=== PATIENT | female | born 1960 | race Caucasian/White ===

== ENCOUNTER 2017-03-02 08:54 | Outpatient (RCR) | payer BC ==
[~2017-03-02 08:54] MED LIST: ALIGN4 MG PO; CIPRO500 MG PO; CO Q-10100 MG PO; COLACE100 MG PO; DIAZEPAM5 MG PO; DICYCLOMINE HCL20 MG PO; DRAMAMINE50 MG PO; HYDROCODONE/APAP PO; MAGNESIUM OXID400 MG PO; NORCO 7.5-3251 EACH PO; OMEGA 3 1,0001 EACH PO; PANTOPRAZOLE SO40 MG PO; PROMETHAZINE HC25 M1 PO; TIZANIDINE HCL4 MG PO; TYLENOL EXTRA500 MG PO
== END 2017-03-18 ==
LOC: OT 08:54
PROVIDERS: ATTEND Plastic Surgery
DX: M19.042 Primary osteoarthritis, left hand (principal)

== ENCOUNTER 2017-11-04 19:38 | Observation (INO) | payer BC ==
[~2017-11-04] VITALS: Ht 154.9 cm; Wt 66.7 kg
[2017-11-04] MEDS ORDERED: NITROGLYCERIN 2% OINT 1 GM PKT TOP ONE (20:15)
[2017-11-04] MEDS ORDERED: ASPIRIN 81 MG CHEW TAB PO ONE (20:15)
[2017-11-04] MEDS ORDERED: ONDANSETRON HCL INJ 2 MG/ML VIAL IV NR (20:15)
[2017-11-04 20:36] LABS: BASOPHILS # (AUTO) 0.1 (0.0-0.1); BASOPHILS % 0.9 % (0.0-1.0); EOSINOPHILS # (AUTO) 0.1 (0.0-0.4); EOSINOPHILS % 2.1 % (0.0-6.0); HEMATOCRIT 37.3 % (34.2-44.1); HEMOGLOBIN 12.6 g/dL (12.0-16.0); LYMPHOCYTES # (AUTO) 2.3 (1.0-3.2); MEAN CORPUSCULAR HEMOGLOBIN 29.9 pg (28-32); MEAN CORPUSCULAR HGB CONC 33.8 g/dL (31-35); MEAN CORPUSCULAR VOLUME 88.6 fL (81-99); MONOCYTES # (AUTO) 0.5 (0.2-0.8); MONOCYTES % 7.4 % (4.4-11.3); NEUTROPHILS # (AUTO) 3.7 (2.1-6.9); NEUTROPHILS % 55.4 % (38.7-80.0); PLATELET COUNT 302 x10e3/uL (140-360); RED BLOOD COUNT 4.21 x10e6/uL (3.6-5.1)
[2017-11-04 20:37] LABS: CLARITY,URINE CLEAR (CLEAR); COLOR,URINE YELLOW (YELLOW)
[2017-11-04 20:38] LABS: BILIRUBIN,URINE NEGATIVE (NEGATIVE); KETONES,URINE NEGATIVE (NEGATIVE); LEUKOCYTE ESTERASE ,URINE NEGATIVE (NEGATIVE); NITRITE,URINE NEGATIVE (NEGATIVE); PROTEIN,URINE DIPSTICK NEGATIVE (NEGATIVE); URINE UROBILINOGEN 0.2 mg/dL (0.2 - 1)
[2017-11-04 20:47] LABS: ALANINE AMINOTRANSFERASE 24 IU/L (0-55); ALBUMIN 4.1 g/dL (3.5-5.0); ALBUMIN/GLOBULIN RATIO 1.2 (0.8-2.0); ALKALINE PHOSPHATASE 88 IU/L (40-150); ANION GAP 15.7 mmol/L (8-16); BLOOD UREA NITROGEN 17 mg/dL (7-26); BUN/CREATININE RATIO 20 (6-25); CALCIUM 9.4 mg/dL (8.4-10.2); CARBON DIOXIDE 23 mmol/L (22-29); CHLORIDE 109 mmol/L (98-107); CREATINE KINASE 197 IU/L (29-168); CREATININE, SERUM 0.86 mg/dL (0.57-1.11); EST GLOMERULAR FILTRATION RATE > 60 ML/MIN (60-); GLUCOSE 102 mg/dL (74-118); POTASSIUM 3.7 mmol/L (3.5-5.1); SODIUM 144 mmol/L (136-145)
[2017-11-04 20:49] LABS: EPITHELIAL CELLS,URINE RARE /LPF
[2017-11-04] MEDS ORDERED: ACETAMINOPHEN 325 MG TAB PO NR (21:30)
[2017-11-04] MEDS ORDERED: ONDANSETRON HCL INJ 2 MG/ML VIAL IV PRN (21:45)
[2017-11-04] MEDS ORDERED: MORPHINE SULFATE 2 MG/ML SYR IV PRN (21:45)
--- NOTE | 2017-11-04 21:54 | Diagnostic Imaging Report ---
CHEST SINGLE (PORTABLE), 11/04/2017 8:08 PM Technique: CHEST SINGLE (PORTABLE) Comparison: 07/03/2016 Clinical history: Chest pain Findings: Unremarkable appearance of the heart, mediastinum, lungs and pleural spaces. Impression: 1. Lines/Tubes: None 2. No acute abnormality. Signed by: Dr Anna Andino MD on 11/04/2017 9:50 PM
[2017-11-04 23:20] VITALS: BP 109/59
[2017-11-04] MEDS: FAMOTIDINE 20 MG/2 ML VIAL IV SCH (23:29)
[2017-11-04] MEDS: NITROGLYCERIN 2% OINT 1 GM PKT TOP SCH (23:30)
[2017-11-05 00:53] VITALS: BP 122/59
[2017-11-05 05:00] VITALS: BP 116/60
[2017-11-05 05:36] LABS: CHOLESTEROL 221 MD/DL (0-199); CREATINE KINASE 152 IU/L (29-168); HDL CHOLESTEROL 74 MG/DL (40-60); LDL CHOLESTEROL 138 MG/DL (60-130); TRIGLYCERIDES 46 MG/DL (0-149)
[2017-11-05] MEDS: NITROGLYCERIN 2% OINT 1 GM PKT TOP SCH ×2 (06:00→12:00)
[2017-11-05 07:50] VITALS: BP 131/70
[2017-11-05 08:00] VITALS: BP 131/70
[2017-11-05] MEDS ORDERED: ASPIRIN 81 MG ENTERIC COATED PO SCH (09:00)
[2017-11-05] MEDS: FAMOTIDINE 20 MG/2 ML VIAL IV SCH (10:35)
[2017-11-05 11:24] VITALS: BP 124/58
[2017-11-05] MEDS ORDERED: MORPHINE SULFATE INJ 4 MG/ML INJ IV PRN (12:45)
[2017-11-05 13:58] LABS: CREATINE KINASE 138 IU/L (29-168)
--- NOTE | 2017-11-05 14:11 | Consultation ---
DATE OF CONSULTATION: November 05, 2017 CARDIOLOGY CONSULTATION REASON FOR CONSULTATION: Chest pain. HPI: This is a 57-year-old female with history of small-bowel resection, history of diverticulosis, anxiety, GERD, chronic neck pain. Patient presents to Patients ER with complaints of chest pain, pressure and tightness for about a week. However, it worsened yesterday so she came in for evaluation, and cardiology was consulted. Patient was seen in room in no acute distress with at bedside. She reports for the past week or so she has been having off and on chest tightness and pressure, retrosternal, nonradiating, nonpleuritic, with some heart fluttering sensation. However, yesterday, apparently the symptoms got worse and she became dizzy, so she came to the ER for further evaluation. Currently, the patient is chest pain free. She is comfortable and in no acute distress. PAST MEDICAL HISTORY: Small-bowel obstruction, diverticulosis, status post large-bowel resection in 2015, anxiety, reflux, chronic neck pain. PAST SURGICAL HISTORY: Large-bowel resection in 2015. Also, neck surgery. FAMILY HISTORY: Mother is alive, unknown age, history of hypertension. Father is alive, apparently with history of right carotid endarterectomy. SOCIAL HISTORY: She is . She apparently cleans houses for a living. She denies any alcohol or tobacco use. ALLERGIES: PENICILLIN, ERYTHROMYCIN, PSEUDOEPHEDRINE. HOME MEDICATIONS: Include: 1. Dicyclomine 20 mg daily. 2. Colace 100 mg daily. 3. Magnesium oxide 400 mg daily. 4. [place] 3. 5. Protonix. 6. Tizanidine 4 mg p.o. p.r.n. REVIEW OF SYSTEMS GENERAL: Denies any weight changes, any fatigue, weakness, seizures or night sweats. SKIN: Denies any rashes or sores. HEENT: Denies any nausea, vomiting or vision changes, any blurred vision or double vision. Does wear corrective lenses. Denies any vertigo or earaches. Positive for dizziness. Denies any sneezing, itching, any epistaxis, bleeding gums, hoarseness, sore throat. CARDIAC: Positive for chest pain as above. Positive dyspnea on exertion. Positive for intermittent palpitations. Denies any orthopnea, any PND, any lower extremity edema. RESPIRATORY: Positive for shortness of breath. Denies any wheezing, coughing, hemoptysis. GI: Good appetite. No nausea, vomiting, diarrhea, constipation, any hematemesis or melena. URINARY: Denies any frequency, urgency or any hematuria. VASCULAR: Denies any lower extremity edema, any claudication, any varicose veins. MUSCULOSKELETAL: Denies any muscle weakness. However, does have cervical pain, neck pain and generalized joint pains. NEUROLOGIC: Denies any numbness, tingling, tremors, any paralysis, blackouts, seizures. HEMATOLOGY: Denies any bruising. ENDOCRINE: Denies any heat or cold intolerance, any polyuria, polydipsia or polyphagia. PHYSICAL EXAMINATION VITALS: Height 61 inches, weight 147. BMI 27. Current vitals: Temperature 96.8, pulse 59, respiratory rate 18, blood pressure 124/58. Pulse ox 95% on room air. GENERAL: Appears stated age. Reliable informant, in no acute distress. SKIN: No rashes or bruises noted. HEENT: Normocephalic. Pupils are equal and reactive. The extraocular movements are intact. NECK: Trachea midline. Oral mucosa is pink. No thyromegaly noted. No JVD. No carotid bruits. HEART: Regular rate and rhythm. No murmurs or clicks noted. PMI at 4th and 5th intercostal space. LUNGS: Bilateral breath sounds clear to auscultation. No wheezing noted. Good airway entry and exit. ABDOMEN: Soft, nontender and nondistended. No organomegaly noted. MUSCULOSKELETAL: Good muscle strength throughout. No lower extremity edema. VASCULAR: There are +2 bilateral radial pulses, +2 DP and PT pulses bilaterally. No lower extremity edema. NEUROLOGIC: Cranial nerves II through XII seem intact. LABS: White count 6.6. Hemoglobin 12.6. Hematocrit 37. Platelets 302. Sodium 144, potassium 3.7, chloride 109, BUN 17, creatinine 0.8. Troponins are less than 0.001, next less than 0.005. D-dimer is 0.29. IMAGING: Chest x-ray: No acute abnormalities. EKG: Normal sinus rhythm. ASSESSMENT 1. Chest pain. 2. Palpitations. 3. Hyperlipidemia. PLAN 1. Patient presents with chest pain with mixed symptoms. Enzymes are negative times 2 thus far. Patient is very concerned and wishes to proceed with cardiac evaluation. 2. We will go ahead and do a stress test to evaluate the symptoms. 3. Will do echo to evaluate heart function and structure. 4. Regarding the patient's apparent fluttering, continue tele monitoring. Thus far, tele was reviewed and no arrhythmias noted. Will also go ahead and get a TSH. 5. Will start statin therapy. 6. Further recommendations as clinical course progresses. Thank you very much for this consult. Dictated by: Reggie Dockery NP Job#: [id number]
--- NOTE | 2017-11-05 14:56 | Cardiology Report ---
DATE OF STUDY: November 05, 2017 EXERCISE TREADMILL STRESS TEST REASON FOR STRESS TEST: Chest discomfort. TECHNICAL DETAILS: After risks, benefits, pros and cons to today's exercise treadmill stress test were explained to the patient, the patient agreed to proceed. She was brought down to the stress lab where 12-lead EKG monitoring and blood pressure monitoring were obtained. She exercised on a Sesar protocol going from a resting heart rate of 73 beats per minute to a maximum of 143 beats per minute and was able to exercise for 7 minutes 30 seconds in duration, terminating in stage 3 of the protocol. Target heart rate was 139 beats per minute, and we exceeded that goal. Blood pressure increased from a baseline of 111/87 up to a maximum of 187/66, which is an appropriate blood pressure response. Underlying EKG reveals normal sinus rhythm, normal axis and no ST-T-wave changes. With exercise protocol, there were no ischemic EKG changes or symptoms. Protocol was terminated due to completion. CONCLUSIONS 1. Normal exercise treadmill stress test. 2. Findings of the stress test were explained to this patient including limitations. Job#: [id number]
[2017-11-05 14:58] VITALS: BP 135/91
[2017-11-05] MEDS ORDERED: ATORVASTATIN 10 MG TAB PO SCH (21:00)
== END 2017-11-05 16:08 | disposition home or self-care (01) ==
LOC: ER 19:38 → ERHOLD 21:55 → IMCU 22:52
DX: R07.2 Precordial pain (principal); F41.9 Anxiety disorder, unspecified; K21.9 Gastro-esophageal reflux disease without esophagitis; R00.2 Palpitations; E78.5 Hyperlipidemia, unspecified; Z82.49 Family history of ischemic heart disease and other diseases of the circulatory system
CPT/HCPCS: 36415 ×2; 71045; 80053; 80061; 81001; 82550 ×2; 82553 ×2; 83880; 84443; 84484 ×2; 85025; 85379; 93005; 93017; 93306; 96376; 99284; G0378 ×2; J2270; J2405 ×2

== ENCOUNTER → 2017-11-19 | Outpatient (CLI) | payer BC ==
--- NOTE | 2017-11-19 12:11 | Diagnostic Imaging Report ---
Exam: Right shoulder 2 views left shoulder 2 views History: Shoulder pain Comparison: None. Findings: Right: No acute, displaced fracture or dislocation. The humeral head projects appropriately adjacent to the glenoid. Acromioclavicular and glenohumeral joint spaces are well-maintained. Soft tissues are unremarkable. Partially visualized right hemithorax is well aerated. Left: No acute, displaced fracture or dislocation. The humeral head projects appropriately adjacent to the glenoid. Acromioclavicular and glenohumeral joint spaces are well-maintained. Soft tissues are unremarkable. Partially visualized left hemithorax is well aerated. Impression: No acute osseous abnormalities. Signed by: Dr. Reggie Shepard M.D. on 11/19/2017 12:07 PM
--- NOTE | 2017-11-19 12:14 | Diagnostic Imaging Report ---
Exam: Cervical spine complete History: Shoulder and neck pain Comparison: None. Findings: The cervical spine is visualized from skull base to the bottom of T1 on the lateral radiograph. No acute, displaced fracture or subluxation. Soft tissue, ligamentous, and spinal cord abnormalities cannot be excluded on the basis of plain radiography. There is disc space narrowing, endplate sclerosis and marginal disc osteophyte complexes at C5-6 and C6-7 with resultant reversal of the expected cervical lordosis. Bilateral uncovertebral arthrosis at these same levels is also noted. The neural foramina are patent as seen on the oblique radiographs. Atlantoaxial interval is within normal limits. Prevertebral soft tissues are of normal thickness. Impression: No acute osseous abnormalities. Degenerative disc changes at C5-6 and C6-7 with reversal of expected cervical lordosis. Signed by: Dr. Reggie Shepard M.D. on 11/19/2017 12:11 PM
== END ==
LOC: RAD 10:49
PROVIDERS: ATTEND Family Medicine
DX: M54.2 Cervicalgia (principal); M25.512 Pain in left shoulder; M25.511 Pain in right shoulder
CPT/HCPCS: 72050

== ENCOUNTER 2018-04-14 13:16 | Outpatient (RCR) | payer BC | END 2018-04-15 | LOC: PT 13:16 | PROVIDERS: ATTEND Specialist | DX: M75.91 Shoulder lesion, unspecified, right shoulder (principal); M25.511 Pain in right shoulder ==

== ENCOUNTER 2018-05-13 08:00 | Outpatient (RCR) | payer BC | END 2018-05-16 | LOC: PT 08:00 | PROVIDERS: ATTEND Specialist | DX: M75.81 Other shoulder lesions, right shoulder (principal); M25.511 Pain in right shoulder; M62.81 Muscle weakness (generalized); M54.2 Cervicalgia ==

== ENCOUNTER 2018-05-27 08:00 | Outpatient (RCR) | payer BC | END 2018-06-15 | LOC: PT 08:00 | PROVIDERS: ATTEND Specialist | DX: M25.511 Pain in right shoulder (principal); M75.81 Other shoulder lesions, right shoulder; M62.81 Muscle weakness (generalized); M54.2 Cervicalgia ==

== ENCOUNTER → 2018-09-30 | Day surgery (SDC) | payer BC ==
[~2018-09-30] MED LIST changes: +CALCIUM MAGNES1 EAC1 PO; +FENTANYL CITRATE/PF 100MCG/2 ML INJ ONE; +GLUCAGON FOR INJ 1 MG VIAL ONE; +HYOSCYAMINE 0.125 MG TAB ONE; +INSULIN N SQ; +MIDAZOLAM HCL 5 MG/ML VIAL ONE; +MULTIVITAMINS1 EAC7 PO; +PROBIOTIC PO; +PROPOFOL IV EMULSION 10 MG/ML 50 ML VIAL ONE; +SIMETHICONE 40 MG/0.6 ML BTL ONE; +[UNRECOGNIZED DRUG - OTHER] PO; +flonase
[2018-09-30 08:55] VITALS: BP 109/63
--- NOTE | 2018-09-30 14:33 | Operative Report ---
DATE OF PROCEDURE: 09/30/2018 SURGEON: Josh Foster MD PROCEDURE: Colonoscopy with polypectomy. INDICATIONS FOR COLONOSCOPY: Surveillance colonoscopy, personal history of colon polyps. MEDICATIONS: The patient was done under MAC, please see anesthesiologist's note. PROCEDURE IN DETAIL: With the patient in left lateral decubitus position, flexible fiberoptic Olympus colonoscope was inserted into the rectum with ease and advanced all the way to the cecum. A minute polyp was removed per the cold biopsy forceps from the cecum. The scope was then withdrawn slowly and scattered diverticular disease was noted in the colon. A minute polyp was hot biopsied from the sigmoid colon. Anastomotic site was noted at 18 cm from the anal verge. It was intact. One polyp was hot biopsied from the rectum. The scope was then retroflexed into the distal rectum and small internal hemorrhoids were noted, none of which was actively bleeding. The scope was then straightened out, it was subsequently withdrawn. The patient tolerated the procedure well. IMPRESSION: 1. Cecal polyp removed per cold biopsy forceps. 2. Diverticulosis. 3. Sigmoid colon polyp, hot biopsied. 4. Anastomosis at 18 cm from the anal verge, intact. 5. Rectal polyp, hot biopsied. 6. Internal hemorrhoids, none actively bleeding. PLAN: Follow up histology. Initiate high-fiber, low-fat diet. Initiate high-fiber supplement. The patient might benefit from a followup colonoscopy in 5 years. Josh Foster MD [facility] [place]/JOE /[id number] cc: Jose Luis Garcia MD
== END | disposition home or self-care (01) ==
LOC: OR 05:54
PROVIDERS: ATTEND Internal Medicine Gastroenterology
DX: Z09 Encounter for follow-up examination after completed treatment for conditions other than malignant neoplasm (principal); K63.5 Polyp of colon; K62.1 Rectal polyp; K57.30 Diverticulosis of large intestine without perforation or abscess without bleeding; Z98.0 Intestinal bypass and anastomosis status; K64.8 Other hemorrhoids; K59.00 Constipation, unspecified; Z88.1 Allergy status to other antibiotic agents; Z88.0 Allergy status to penicillin; Z88.8 Allergy status to other drugs, medicaments and biological substances; Z01.810 Encounter for preprocedural cardiovascular examination; Z79.4 Long term (current) use of insulin; Z68.27 Body mass index [BMI] 27.0-27.9, adult
CPT/HCPCS: 45380; 45384; 93005; J1610; J2250; J2704; J3010; 45378

== ENCOUNTER 2019-08-11 11:09 | Outpatient (RCR) | payer BC ==
[~2019-08-11 11:09] MED LIST changes: -FENTANYL CITRATE/PF 100MCG/2 ML INJ ONE; -GLUCAGON FOR INJ 1 MG VIAL ONE; -HYOSCYAMINE 0.125 MG TAB ONE; -MIDAZOLAM HCL 5 MG/ML VIAL ONE; -PROPOFOL IV EMULSION 10 MG/ML 50 ML VIAL ONE; -SIMETHICONE 40 MG/0.6 ML BTL ONE
== END 2019-08-16 ==
LOC: PT 11:09
PROVIDERS: ATTEND Specialist
DX: S13.4XXA Sprain of ligaments of cervical spine, initial encounter (principal); M54.2 Cervicalgia; M62.81 Muscle weakness (generalized)

== ENCOUNTER → 2019-09-16 | Outpatient (RCR) | payer BC | LOC: PT 09-02 08:23 | PROVIDERS: ATTEND Specialist | DX: M54.2 Cervicalgia (principal); M62.81 Muscle weakness (generalized) | CPT/HCPCS: 97139 ==

== ENCOUNTER 2019-10-12 07:58 | Outpatient (RCR) | payer BC | END 2019-10-17 | LOC: PT 07:58 | PROVIDERS: ATTEND Specialist | DX: S16.1XXA Strain of muscle, fascia and tendon at neck level, initial encounter (principal); M62.81 Muscle weakness (generalized) | CPT/HCPCS: 97139 ==

== ENCOUNTER 2020-04-26 06:30 | Observation (INO) | payer BC ==
[2020-04-23 15:29] LABS: BASOPHILS # (AUTO) 0.1 (0.0-0.1); BASOPHILS % 0.8 % (0.0-1.0); EOSINOPHILS # (AUTO) 0.1 (0.0-0.4); EOSINOPHILS % 1.1 % (0.0-6.0); HEMATOCRIT 35.5 % (34.2-44.1); HEMOGLOBIN 11.8 g/dL (12.0-16.0); LYMPHOCYTES # (AUTO) 2.1 (1.0-3.2); LYMPHOCYTES % 34.4 % (18.0-39.1); MEAN CORPUSCULAR HEMOGLOBIN 29.3 pg (28-32); MEAN CORPUSCULAR HGB CONC 33.2 g/dL (31-35); MEAN CORPUSCULAR VOLUME 88.1 fL (81-99); MONOCYTES # (AUTO) 0.3 (0.2-0.8); MONOCYTES % 4.9 % (4.4-11.3); NEUTROPHILS # (AUTO) 3.6 (2.1-6.9); NEUTROPHILS % 58.6 % (38.7-80.0); PLATELET COUNT 370 x10e3/uL (140-360); RED BLOOD COUNT 4.03 x10e6/uL (3.6-5.1); RED CELL DISTRIBUTION WIDTH 14.3 % (11.7-14.4)
[2020-04-23 15:38] LABS: INR 0.93
[2020-04-23 15:39] LABS: PARTIAL THROMBOPLASTIN TIME 28.5 seconds (23.8-35.5)
[2020-04-23 16:01] LABS: ANION GAP 14.8 mmol/L (8-16); CALCIUM 9.6 mg/dL (8.4-10.2); POTASSIUM 3.8 mmol/L (3.5-5.1)
[~2020-04-26] VITALS: Ht 154.9 cm; Wt 62.1 kg
[2020-04-26] VITALS (7 sets, daily range): BP systolic 126–137; BP diastolic 75–83
[~2020-04-26 06:30] MED LIST changes: +B COMPLEX1 EACH PO; +ULTRACET TABLE1 EACH PO
[2020-04-26] MEDS ORDERED: THROMBIN FOR SOLN 5,000 UNIT VIAL ONE (07:13)
[2020-04-26] MEDS ORDERED: VANCOMYCIN HCL 1 GM VIAL ONE (07:13)
[2020-04-26] MEDS ORDERED: LIDOCAINE 1% W/EPINEPHRINE 20 ML VIAL ONE (07:13)
[2020-04-26] MEDS ORDERED: ACETAMINOPHEN 1000 MG/100 ML 100 ML IV ONE (07:15)
[2020-04-26] MEDS ORDERED: IBUPROFEN 800MG/ 200ML 200 ML IV ONE (07:15)
[2020-04-26] MEDS ORDERED: LIDOCAINE HCL (LTA) 4 ML SOLN ONE (07:15)
[2020-04-26] MEDS ORDERED: VANCOMYCIN 1GM/NS 250 ML 250 ML ONE (07:35)
[2020-04-26] MEDS ORDERED: HYDROCODON-ACE1 EA12 PO (10:12)
[2020-04-26] MEDS ORDERED: PROMETHAZINE HCL (IM) 25 MG/ML VIAL IM PRN (10:15)
[2020-04-26] MEDS ORDERED: PROMETHAZINE HCL 25 MG TAB PO SCH (10:15)
[2020-04-26] MEDS ORDERED: LACTATED RINGER'S 1,000 ML IV SCH (10:15)
[2020-04-26] MEDS: VANCOMYCIN 1GM/NS 250 ML 250 ML IV SCH ×2 (10:15→22:15)
[2020-04-26] MEDS ORDERED: OXYCODONE/ACETAMINOPHEN 5-325 1 EACH TABLET PO PRN (10:15)
[2020-04-26] MEDS ORDERED: MAGNESIUM/ALUMINUM/SIMETHICONE 30 ML UDC PO PRN (10:15)
[2020-04-26] MEDS ORDERED: CARISOPRODOL 350 MG TAB PO PRN (10:15)
[2020-04-26] MEDS ORDERED: ZOLPIDEM TARTRATE 5 MG TAB PO PRN (10:15)
[2020-04-26] MEDS ORDERED: ACETAMINOPHEN 325 MG TAB PO PRN (10:15)
[2020-04-26] MEDS ORDERED: CEPACOL SORE THROAT LOZENGES PO PRN (10:15)
[2020-04-26] MEDS ORDERED: FENTANYL CITRATE/PF 100MCG/2 ML INJ ONE ×2 (10:35→12:49)
[2020-04-26] MEDS ORDERED: MORPHINE SULFATE INJ 4 MG/ML INJ 1ML IM PRN (10:45)
[2020-04-26] MEDS ORDERED: PROMETHAZINE HCL 25 MG TAB PO PRN (11:15)
[2020-04-26] MEDS: ONDANSETRON HCL INJ 2MG/ML 2ML 2 MG/ML VIAL IV PRN ×2 (12:44→23:45)
[2020-04-26] MEDS ORDERED: MIDAZOLAM HCL 2 MG/2 ML VIAL ONE (12:49)
[2020-04-26] MEDS: HYDROMORPHONE 2MG/ML 2 MG/ML ML IV PRN ×3 (12:53→23:46)
[2020-04-26] MEDS ORDERED: NEOSTIGMINE 1 MG/ML 10ML VIAL ONE (16:46)
[2020-04-26] MEDS ORDERED: SEVOFLURANE INHAL SOLN 250 ML PEN BTL ONE (16:46)
[2020-04-26] MEDS ORDERED: ONDANSETRON HCL INJ 2MG/ML 2ML 2 MG/ML VIAL ONE (16:46)
[2020-04-26] MEDS ORDERED: LIDOCAINE HCL 2% JELLY 5 ML TUBE ONE (16:46)
[2020-04-26] MEDS ORDERED: PROPOFOL IV EMULSION 10 MG/ML 20 ML VIAL ONE (16:46)
[2020-04-26] MEDS ORDERED: ROCURONIUM BROMIDE 10 MG/ML 5ML VIAL IV ONE (16:46)
[2020-04-26] MEDS ORDERED: DEXAMETHASONE SOD PHOS INJ 4 MG/ML VIAL ONE (16:46)
[2020-04-26] MEDS ORDERED: GLYCOPYRROLATE INJ 0.2 MG/ML VIAL ONE (16:46)
[2020-04-26] MEDS ORDERED: LIDOCAINE HCL 2% LOCAL INJ 5 ML SDV VIAL INJ ONE (16:46)
[2020-04-26] MEDS ORDERED: MAGNESIUM OXIDE 400 MG TAB PO SCH (21:00)
[2020-04-26] MEDS ORDERED: SODIUM CHLORIDE 0.9% 250ML 250 ML ONE (23:04)
[2020-04-27] VITALS: BP 129/83
[2020-04-27 04:00] VITALS: BP 120/70
[2020-04-27 07:49] VITALS: BP 115/67
[2020-04-27 08:38] VITALS: BP 115/67
[2020-04-27] MEDS ORDERED: PANTOPRAZOLE SOD 40 MG TABEC PO SCH (09:00)
[2020-04-27] MEDS ORDERED: MULTIVITAMINS/MINERALS TAB PO SCH (09:00)
[2020-04-27] MEDS: TRAMADOL/APAP 37.5MG-325MG TAB PO SCH ×2 (09:09→09:39)
[2020-04-27 09:31] VITALS: BP 115/67
[2020-04-27] MEDS ORDERED: HYDROMORPHONE 2MG/ML 2 MG/ML ML IV PRN (10:15)
== END 2020-04-27 10:40 | disposition home or self-care (01) ==
LOC: OR 06:30 → PACU V 10:09 → MED/SURG 10:56
PROVIDERS: ADMIT Neurological Surgery; ATTEND Neurological Surgery
DX: M50.120 Mid-cervical disc disorder, unspecified level (principal); Z20.822 Contact with and (suspected) exposure to COVID-19
CPT/HCPCS: 20931; 22551; 22552; 22845; 36415; 71046; 77003; 80048; 85025; 85610; 85730; 86850; 86900; 88304; 88311; 93005; C1713 ×5; C1768; G0378 ×2; J0131; J1100; J1170; J2001 ×2; J2250; J2405; J2704; J2710; J3010; J3370 ×2; J7050; S0164; U0002

== ENCOUNTER → 2020-05-24 | Outpatient (CLI) | payer BC ==
[~2020-05-24] MED LIST changes: +HYDROCODON-ACE1 EA12 PO
== END ==
LOC: RAD 13:02
PROVIDERS: ATTEND Neurological Surgery
DX: M50.20 Other cervical disc displacement, unspecified cervical region (principal); M43.22 Fusion of spine, cervical region
CPT/HCPCS: 72050

== ENCOUNTER 2020-07-05 23:40 | Observation (INO) | payer BC ==
[~2020-07-05] VITALS: Ht 154.9 cm; Wt 62.1 kg
[2020-07-06] VITALS (8 sets, daily range): BP systolic 108–140; BP diastolic 63–86
[2020-07-06] MEDS ORDERED: ONDANSETRON HCL INJ 2MG/ML 2ML 2 MG/ML VIAL IV STA (00:04)
[2020-07-06] MEDS ORDERED: MORPHINE SULFATE INJ 2 MG/ML SYR IV STA (00:04)
[2020-07-06] MEDS ORDERED: SODIUM CHLORIDE 0.9% 1000ML 1,000 ML IV ONE (00:15)
[2020-07-06 00:22] LABS: BASOPHILS # (AUTO) 0.1 (0.0-0.1); BASOPHILS % 0.6 % (0.0-1.0); EOSINOPHILS # (AUTO) 0.2 (0.0-0.4); HEMATOCRIT 38.6 % (34.2-44.1); HEMOGLOBIN 12.7 g/dL (12.0-16.0); LYMPHOCYTES # (AUTO) 1.7 (1.0-3.2); LYMPHOCYTES % 22.2 % (18.0-39.1); MEAN CORPUSCULAR HEMOGLOBIN 28.7 pg (28-32); MEAN CORPUSCULAR HGB CONC 32.9 g/dL (31-35); MEAN CORPUSCULAR VOLUME 87.1 fL (81-99); MONOCYTES # (AUTO) 0.5 (0.2-0.8); MONOCYTES % 6.2 % (4.4-11.3); NEUTROPHILS # (AUTO) 5.4 (2.1-6.9); NEUTROPHILS % 68.6 % (38.7-80.0); PLATELET COUNT 313 x10e3/uL (140-360); RED BLOOD COUNT 4.43 x10e6/uL (3.6-5.1); RED CELL DISTRIBUTION WIDTH 14.3 % (11.7-14.4)
[2020-07-06 00:38] LABS: CLARITY,URINE CLEAR (CLEAR); COLOR,URINE YELLOW (YELLOW); KETONES,URINE NEGATIVE (NEGATIVE); LEUKOCYTE ESTERASE ,URINE NEGATIVE (NEGATIVE); NITRITE,URINE NEGATIVE (NEGATIVE); PROTEIN,URINE DIPSTICK NEGATIVE (NEGATIVE); URINE UROBILINOGEN 0.2 mg/dL (0.2 - 1)
[2020-07-06 00:40] LABS: AMYLASE 83 U/L (25-125); LIPASE 32 U/L (8-78)
[2020-07-06] MEDS ORDERED: DIATRIZOATE MEGL/DIATRIZOA SOD 30 ML BTL PO ONE (00:41)
[2020-07-06 00:44] LABS: BACTERIA,URINE FEW /HPF; EPITHELIAL CELLS,URINE RARE /LPF; RBC,URINE 0-5 /HPF (0-5); WBC,URINE (MAN) 0-5 /HPF (0-5)
[2020-07-06 00:50] LABS: ALANINE AMINOTRANSFERASE 25 IU/L (0-55); ALBUMIN/GLOBULIN RATIO 1.2 (0.8-2.0); ALKALINE PHOSPHATASE 91 IU/L (40-150); ANION GAP 17.2 mmol/L (8-16); BLOOD UREA NITROGEN 27 mg/dL (7-26); BUN/CREATININE RATIO 27 (6-25); CARBON DIOXIDE 24 mmol/L (22-29); CHLORIDE 105 mmol/L (98-107); CREATINE KINASE 203 IU/L (29-168); CREATININE, SERUM 0.99 mg/dL (0.57-1.11); EST GLOMERULAR FILTRATION RATE 57 ML/MIN (60-); GLUCOSE 107 mg/dL (74-118); POTASSIUM 4.2 mmol/L (3.5-5.1); SODIUM 142 mmol/L (136-145)
[2020-07-06] MEDS ORDERED: IOPAMIDOL 370 MG/ML 200 ML INFUS..BTL INJ ONE (01:31)
[2020-07-06] MEDS ORDERED: SODIUM CHLORIDE 0.9% 50ML 50 ML ONE (01:31)
[2020-07-06] MEDS ORDERED: ONDANSETRON HCL INJ 2MG/ML 2ML 2 MG/ML VIAL IV PRN (02:45)
[2020-07-06] MEDS ORDERED: MORPHINE SULFATE INJ 4 MG/ML INJ 1ML IV PRN (02:45)
[2020-07-06] MEDS: SODIUM CHLORIDE 0.9% 1000ML 1,000 ML IV SCH ×3 (02:52→17:37)
[2020-07-06] MEDS ORDERED: SODIUM CHLORIDE 0.9% 1000ML 1,000 ML ONE (02:58)
[2020-07-06] MEDS ORDERED: ACETAMINOPHEN 325 MG TAB PO PRN (12:45)
[2020-07-06] MEDS: PANTOPRAZOLE 40 MG 10ML VIAL IV SCH (14:09)
[2020-07-06] MEDS ORDERED: ZYRTEC10 M3 PO (21:32)
[2020-07-06] MEDS ORDERED: LORATADINE 10 MG TAB PO PRN (21:45)
[2020-07-07] VITALS: BP 122/76
[2020-07-07] MEDS: SODIUM CHLORIDE 0.9% 1000ML 1,000 ML IV SCH ×2 (01:30→10:13)
[2020-07-07 04:00] VITALS: BP 101/56
[2020-07-07 06:12] LABS: BASOPHILS # (AUTO) 0.1 (0.0-0.1); BASOPHILS % 1.3 % (0.0-1.0); EOSINOPHILS # (AUTO) 0.2 (0.0-0.4); EOSINOPHILS % 4.8 % (0.0-6.0); HEMATOCRIT 38.7 % (34.2-44.1); HEMOGLOBIN 12.9 g/dL (12.0-16.0); LYMPHOCYTES # (AUTO) 2.1 (1.0-3.2); LYMPHOCYTES % 46.4 % (18.0-39.1); MEAN CORPUSCULAR HEMOGLOBIN 28.9 pg (28-32); MEAN CORPUSCULAR HGB CONC 33.3 g/dL (31-35); MEAN CORPUSCULAR VOLUME 86.8 fL (81-99); MONOCYTES # (AUTO) 0.3 (0.2-0.8); MONOCYTES % 7.2 % (4.4-11.3); NEUTROPHILS # (AUTO) 1.8 (2.1-6.9); NEUTROPHILS % 40.3 % (38.7-80.0); PLATELET COUNT 287 x10e3/uL (140-360); RED BLOOD COUNT 4.46 x10e6/uL (3.6-5.1); RED CELL DISTRIBUTION WIDTH 14.3 % (11.7-14.4)
[2020-07-07 06:43] LABS: ALANINE AMINOTRANSFERASE 21 IU/L (0-55); ALBUMIN 3.6 g/dL (3.5-5.0); ALBUMIN/GLOBULIN RATIO 1.3 (0.8-2.0); ALKALINE PHOSPHATASE 72 IU/L (40-150); BLOOD UREA NITROGEN 9 mg/dL (7-26); BUN/CREATININE RATIO 11 (6-25); CALCIUM 9.3 mg/dL (8.4-10.2); CARBON DIOXIDE 23 mmol/L (22-29); CHLORIDE 107 mmol/L (98-107); EST GLOMERULAR FILTRATION RATE > 60 ML/MIN (60-); GLUCOSE 90 mg/dL (74-118); SODIUM 140 mmol/L (136-145)
[2020-07-07 07:26] VITALS: BP 133/77
[2020-07-07] MEDS ORDERED: FLUTICASONE PROPIONATE NASAL SPRAY NS SCH (09:00)
[2020-07-07] MEDS: PANTOPRAZOLE 40 MG 10ML VIAL IV SCH (09:00)
[2020-07-07 10:23] VITALS: BP 133/77
[2020-07-07 11:38] VITALS: BP 113/68
== END 2020-07-07 14:13 | disposition home or self-care (01) ==
LOC: ER 07-06 00:42 → ERHOLD 07-06 02:45 → MED/SURG 07-06 03:28
PROVIDERS: ADMIT Surgery; ATTEND Surgery
DX: K56.600 Partial intestinal obstruction, unspecified as to cause (principal); Z88.0 Allergy status to penicillin; Z88.8 Allergy status to other drugs, medicaments and biological substances; Z20.822 Contact with and (suspected) exposure to COVID-19
CPT/HCPCS: 36415 ×2; 74019; 74177; 80053 ×2; 81001; 82150; 82550; 82553; 83690; 84484; 85025 ×2; 93005; 99284; C9113 ×2; G0378 ×2; J2270 ×2; J2405; J7030 ×2; Q9967; U0002

== ENCOUNTER → 2020-11-28 | Outpatient (CLI) | payer BC ==
[~2020-11-28] MED LIST changes: +ZYRTEC10 M3 PO
== END ==
LOC: RAD 09:12
PROVIDERS: ATTEND Neurological Surgery
DX: M50.20 Other cervical disc displacement, unspecified cervical region (principal); M43.22 Fusion of spine, cervical region
CPT/HCPCS: 72050

== ENCOUNTER 2021-02-10 14:16 | Emergency (ER) | payer BC ==
[~2021-02-10] VITALS: Ht 154.9 cm; Wt 63.6 kg
[2021-02-10] MEDS ORDERED: KETOROLAC TROMETHAMINE 30 MG/ML VIAL IV STA (15:38)
[2021-02-10] MEDS ORDERED: PROMETHAZINE 12.5MG/ NACL 0.9% 12.5 MG/50 ML BAG IV ONE (15:45)
[2021-02-10] MEDS ORDERED: SODIUM CHLORIDE 0.9% 1000ML 1,000 ML IV SCH (15:45)
[2021-02-10] MEDS ORDERED: KETOROLAC TROMETHAMINE 30 MG/ML VIAL ONE (16:15)
[2021-02-10] MEDS ORDERED: SODIUM CHLORIDE 0.9% 50ML 50 ML ONE (16:16)
[2021-02-10] MEDS ORDERED: PROMETHAZINE HCL (IM) 25 MG/ML VIAL IM ONE (16:16)
[2021-02-10] MEDS ORDERED: SODIUM CHLORIDE 0.9% 1000ML 1,000 ML ONE (16:16)
[2021-02-10] MEDS ORDERED: PROMETHAZINE12.5 MG PR (17:58)
[2021-02-10] MEDS ORDERED: AZITHROMYCIN250 MG PO (17:59)
[2021-02-10] MEDS ORDERED: DEXAMETHASONE6 MG PO (18:00)
== END 2021-02-10 18:15 | disposition home or self-care (01) ==
LOC: FSED 14:30
DX: U07.1 COVID-19 (principal); B34.9 Viral infection, unspecified; R50.9 Fever, unspecified; K21.9 Gastro-esophageal reflux disease without esophagitis; F41.9 Anxiety disorder, unspecified; Z98.0 Intestinal bypass and anastomosis status; Z87.19 Personal history of other diseases of the digestive system
CPT/HCPCS: 87400; 96374; 99283; J1885; J2550; J7030; U0002

== ENCOUNTER 2021-03-23 04:26 | Inpatient (IN) | payer BC ==
[~2021-03-23] VITALS: Ht 154.9 cm; Wt 63.5 kg
[~2021-03-23 04:26] MED LIST changes: +AZITHROMYCIN250 MG PO; +DEXAMETHASONE6 MG PO; +PROMETHAZINE12.5 MG PR
[2021-03-23] MEDS ORDERED: FAMOTIDINE 20 MG/2 ML VIAL IV STA (04:31)
[2021-03-23] MEDS ORDERED: ONDANSETRON HCL INJ 2MG/ML 2ML 2 MG/ML VIAL IV STA (04:31)
[2021-03-23 04:42] LABS: BASOPHILS # (AUTO) 0.1 (0.0-0.1); BASOPHILS % 0.7 % (0.0-1.0); EOSINOPHILS # (AUTO) 0.1 (0.0-0.4); EOSINOPHILS % 1.1 % (0.0-6.0); HEMATOCRIT 40.5 % (34.2-44.1); HEMOGLOBIN 13.1 g/dL (12.0-16.0); LYMPHOCYTES # (AUTO) 2.3 (1.0-3.2); LYMPHOCYTES % 30.3 % (18.0-39.1); MEAN CORPUSCULAR HEMOGLOBIN 28.4 pg (28-32); MEAN CORPUSCULAR HGB CONC 32.3 g/dL (31-35); MEAN CORPUSCULAR VOLUME 87.7 fL (81-99); MONOCYTES # (AUTO) 0.5 (0.2-0.8); MONOCYTES % 6.8 % (4.4-11.3); NEUTROPHILS # (AUTO) 4.5 (2.1-6.9); NEUTROPHILS % 60.8 % (38.7-80.0); PLATELET COUNT 357 x10e3/uL (140-360); RED BLOOD COUNT 4.62 x10e6/uL (3.6-5.1); RED CELL DISTRIBUTION WIDTH 14.9 % (11.7-14.4)
[2021-03-23 04:56] LABS: CLARITY,URINE CLEAR (CLEAR); COLOR,URINE YELLOW (YELLOW); KETONES,URINE NEGATIVE (NEGATIVE); LEUKOCYTE ESTERASE ,URINE NEGATIVE (NEGATIVE); NITRITE,URINE NEGATIVE (NEGATIVE); PROTEIN,URINE DIPSTICK NEGATIVE (NEGATIVE); URINE UROBILINOGEN 0.2 mg/dL (0.2 - 1)
[2021-03-23 05:01] LABS: BACTERIA,URINE FEW /HPF; EPITHELIAL CELLS,URINE FEW /LPF; RBC,URINE 0-5 /HPF (0-5); WBC,URINE (MAN) 0-5 /HPF (0-5)
[2021-03-23 05:01] LABS: ALBUMIN 4.2 g/dL (3.5-5.0); ALBUMIN/GLOBULIN RATIO 1.2 (0.8-2.0); ANION GAP 15.8 mmol/L (8-16); CALCIUM 9.9 mg/dL (8.4-10.2); CREATININE, SERUM 0.97 mg/dL (0.57-1.11); POTASSIUM 3.8 mmol/L (3.5-5.1)
[2021-03-23 05:08] LABS: CREATINE KINASE MB 3.1 ng/mL (0-5.0)
[2021-03-23] MEDS ORDERED: IOPAMIDOL 370 MG/ML 200 ML INFUS..BTL INJ ONE (05:35)
[2021-03-23] MEDS ORDERED: SODIUM CHLORIDE 0.9% 50ML 50 ML ONE (05:35)
[2021-03-23] MEDS ORDERED: SODIUM CHLORIDE 0.9% 500ML 500 ML IV ONE (06:45)
[2021-03-23] MEDS: SODIUM CHLORIDE 0.9% 1000ML 1,000 ML IV SCH ×3 (06:45→21:04)
[2021-03-23] MEDS ORDERED: PROMETHAZINE HCL 12.5 MG SUPP PR ONE (06:45)
[2021-03-23] MEDS ORDERED: KETOROLAC TROMETHAMINE 30 MG/ML VIAL IV ONE (07:15)
[2021-03-23 11:31] VITALS: BP 131/81
[2021-03-23 11:37] VITALS: BP 131/81
[2021-03-23 11:41] VITALS: BP 131/81
[2021-03-23 15:54] VITALS: BP 128/80
[2021-03-23] MEDS ORDERED: CHLORASEPTIC SPRAY 177 ML BTL MM PRN (18:30)
[2021-03-23 20:24] VITALS: BP 138/95
[2021-03-23] MEDS ORDERED: ONDANSETRON HCL INJ 2MG/ML 2ML 2 MG/ML VIAL IV PRN (20:30)
[2021-03-23] MEDS: KETOROLAC TROMETHAMINE 30 MG/ML VIAL IM PRN (21:05)
[2021-03-23 21:20] VITALS: BP 138/95
[2021-03-24] VITALS (9 sets, daily range): BP systolic 128–158; BP diastolic 76–95
[2021-03-24] MEDS: SODIUM CHLORIDE 0.9% 1000ML 1,000 ML IV SCH ×3 (05:23→21:52)
[2021-03-24 06:18] LABS: BASOPHILS % 0.6 % (0.0-1.0); EOSINOPHILS # (AUTO) 0.1 (0.0-0.4); EOSINOPHILS % 0.7 % (0.0-6.0); HEMATOCRIT 34.7 % (34.2-44.1); HEMOGLOBIN 11.3 g/dL (12.0-16.0); LYMPHOCYTES # (AUTO) 2.3 (1.0-3.2); LYMPHOCYTES % 32.9 % (18.0-39.1); MEAN CORPUSCULAR HEMOGLOBIN 28.5 pg (28-32); MEAN CORPUSCULAR HGB CONC 32.6 g/dL (31-35); MEAN CORPUSCULAR VOLUME 87.4 fL (81-99); MONOCYTES # (AUTO) 0.7 (0.2-0.8); MONOCYTES % 9.4 % (4.4-11.3); NEUTROPHILS % 56.3 % (38.7-80.0); PLATELET COUNT 313 x10e3/uL (140-360); RED BLOOD COUNT 3.97 x10e6/uL (3.6-5.1); RED CELL DISTRIBUTION WIDTH 15.6 % (11.7-14.4)
[2021-03-24 06:34] LABS: ALBUMIN 3.3 g/dL (3.5-5.0); ALBUMIN/GLOBULIN RATIO 1.2 (0.8-2.0); ANION GAP 12.4 mmol/L (8-16); CALCIUM 8.5 mg/dL (8.4-10.2); CREATININE, SERUM 0.8 mg/dL (0.57-1.11); POTASSIUM 3.4 mmol/L (3.5-5.1)
[2021-03-24] MEDS: KETOROLAC TROMETHAMINE 30 MG/ML VIAL IM PRN (09:06)
[2021-03-24] MEDS ORDERED: POTASSIUM CHLORIDE 20MEQ/100ML 100 ML IV ONE (12:00)
[2021-03-25 04:00] VITALS: BP 124/76
[2021-03-25 05:28] LABS: BASOPHILS # (AUTO) 0.1 (0.0-0.1); BASOPHILS % 0.6 % (0.0-1.0); EOSINOPHILS # (AUTO) 0.1 (0.0-0.4); EOSINOPHILS % 1.7 % (0.0-6.0); HEMATOCRIT 33.2 % (34.2-44.1); HEMOGLOBIN 10.6 g/dL (12.0-16.0); LYMPHOCYTES % 24.6 % (18.0-39.1); MEAN CORPUSCULAR HEMOGLOBIN 28.1 pg (28-32); MEAN CORPUSCULAR HGB CONC 31.9 g/dL (31-35); MEAN CORPUSCULAR VOLUME 88.1 fL (81-99); MONOCYTES # (AUTO) 0.7 (0.2-0.8); MONOCYTES % 8.1 % (4.4-11.3); NEUTROPHILS # (AUTO) 5.3 (2.1-6.9); NEUTROPHILS % 64.8 % (38.7-80.0); PLATELET COUNT 281 x10e3/uL (140-360); RED BLOOD COUNT 3.77 x10e6/uL (3.6-5.1); RED CELL DISTRIBUTION WIDTH 15.2 % (11.7-14.4)
[2021-03-25] MEDS: SODIUM CHLORIDE 0.9% 1000ML 1,000 ML IV SCH (05:37)
[2021-03-25 06:34] LABS: ANION GAP 13.1 mmol/L (8-16); CALCIUM 8.6 mg/dL (8.4-10.2); CREATININE, SERUM 0.71 mg/dL (0.57-1.11); POTASSIUM 4.1 mmol/L (3.5-5.1)
[2021-03-25 08:19] VITALS: BP 132/92
[2021-03-25 09:15] VITALS: BP 132/92
[2021-03-25 11:59] VITALS: BP 134/87
[2021-03-25] MEDS ORDERED: PANTOPRAZOLE SO40 MG PO (12:39)
== END 2021-03-25 13:36 | disposition home or self-care (01) | DRG 388 ==
LOC: ER 04:33 → ERHOLD 06:57 → IMCU 09:00
PROVIDERS: ADMIT Internal Medicine; ATTEND Internal Medicine
PROC: 0D9670Z Drainage of Stomach with Drainage Device, Via Natural or Artificial Opening (ICD-10-PCS; principal; 2021-03-23)
DX: K56.600 Partial intestinal obstruction, unspecified as to cause (principal); U07.1 COVID-19; E66.9 Obesity, unspecified; K21.9 Gastro-esophageal reflux disease without esophagitis; K29.70 Gastritis, unspecified, without bleeding; F41.9 Anxiety disorder, unspecified; K57.90 Diverticulosis of intestine, part unspecified, without perforation or abscess without bleeding; Z90.49 Acquired absence of other specified parts of digestive tract; Z88.0 Allergy status to penicillin; Z88.8 Allergy status to other drugs, medicaments and biological substances; Z68.26 Body mass index [BMI] 26.0-26.9, adult
CPT/HCPCS: 36415; 74019; 74022; 74177; 80048; 80053; 81001; 82550; 82553; 83690; 84484; 85025; 93005; 94799; 99284; J1885; J2405; J3480; J7030; Q0169; Q9967; U0002

== ENCOUNTER → 2021-04-08 | Day surgery (SDC) | payer BC ==
[~2021-04-08] MED LIST changes: +DICYCLOMINE HCL10 MG PO; +FENTANYL CITRATE/PF 100MCG/2 ML INJ ONE; +LIDOCAINE HCL 2% LOCAL INJ 5 ML SDV VIAL INJ ONE; +METOCLOPRAMIDE HCL 10 MG/2ML VIAL ONE; +MIDAZOLAM HCL 2 MG/2 ML VIAL ONE; +OMEGA RED PO; +POVIDONE IODINE 0.05% 0.05 % ML PO ONE; +PROPOFOL IV EMULSION 10 MG/ML 20 ML VIAL ONE; +VIT D PO
[2021-04-08 10:47] VITALS: BP 103/72
== END | disposition home or self-care (01) ==
LOC: OR 08:20
PROVIDERS: ATTEND Internal Medicine Gastroenterology
DX: K29.60 Other gastritis without bleeding (principal); K31.7 Polyp of stomach and duodenum; K25.9 Gastric ulcer, unspecified as acute or chronic, without hemorrhage or perforation; K20.90 Esophagitis, unspecified without bleeding; K44.9 Diaphragmatic hernia without obstruction or gangrene; D72.820 Lymphocytosis (symptomatic); Z86.010 Personal history of colon polyps; R19.7 Diarrhea, unspecified; Z87.19 Personal history of other diseases of the digestive system; Z71.3 Dietary counseling and surveillance; R03.0 Elevated blood-pressure reading, without diagnosis of hypertension; Z88.1 Allergy status to other antibiotic agents; Z88.0 Allergy status to penicillin; Z88.8 Allergy status to other drugs, medicaments and biological substances; Z68.26 Body mass index [BMI] 26.0-26.9, adult; Z86.16 Personal history of COVID-19
CPT/HCPCS: 43239; 43251; C9113; J2001; J2250; J2704; J2765; J3010

== ENCOUNTER → 2021-11-13 | Day surgery (SDC) | payer BC ==
[~2021-11-13] MED LIST changes: -FENTANYL CITRATE/PF 100MCG/2 ML INJ ONE; -METOCLOPRAMIDE HCL 10 MG/2ML VIAL ONE; -MIDAZOLAM HCL 2 MG/2 ML VIAL ONE; +MIRALAX17 GM PO; -POVIDONE IODINE 0.05% 0.05 % ML PO ONE; +ZINC PO; +[UNRECOGNIZED DRUG - OTHER] PO
[2021-11-13 11:46] VITALS: BP 114/83
== END | disposition home or self-care (01) ==
LOC: OR 08:40
PROVIDERS: ATTEND Internal Medicine Gastroenterology
DX: K25.9 Gastric ulcer, unspecified as acute or chronic, without hemorrhage or perforation (principal); K31.7 Polyp of stomach and duodenum; K29.70 Gastritis, unspecified, without bleeding; K44.9 Diaphragmatic hernia without obstruction or gangrene; K21.9 Gastro-esophageal reflux disease without esophagitis; Z71.3 Dietary counseling and surveillance; Z87.19 Personal history of other diseases of the digestive system; R00.1 Bradycardia, unspecified; M19.90 Unspecified osteoarthritis, unspecified site; M54.2 Cervicalgia; M54.9 Dorsalgia, unspecified; F41.9 Anxiety disorder, unspecified; Z88.1 Allergy status to other antibiotic agents; Z88.0 Allergy status to penicillin; Z88.8 Allergy status to other drugs, medicaments and biological substances; Z01.810 Encounter for preprocedural cardiovascular examination; Z79.899 Other long term (current) drug therapy; Z68.27 Body mass index [BMI] 27.0-27.9, adult; Z86.16 Personal history of COVID-19
CPT/HCPCS: 43251; 93005; J2001; J2704

== ENCOUNTER → 2021-12-04 | Outpatient (CLI) | payer BC ==
[~2021-12-04] MED LIST changes: -LIDOCAINE HCL 2% LOCAL INJ 5 ML SDV VIAL INJ ONE; -PROPOFOL IV EMULSION 10 MG/ML 20 ML VIAL ONE
== END ==
LOC: RAD 12:03
PROVIDERS: ATTEND Internal Medicine
DX: J15.9 Unspecified bacterial pneumonia (principal)
CPT/HCPCS: 71046

== ENCOUNTER 2022-12-11 08:00 | Outpatient (RCR) | payer BC ==
[~2022-12-11 08:00] MED LIST changes: +[UNRECOGNIZED DRUG - OTHER] PO
== END 2022-12-16 ==
LOC: PT 08:00
PROVIDERS: ATTEND Student in an Organized Health Care Education/Training Program
DX: M51.26 Other intervertebral disc displacement, lumbar region (principal); M54.42 Lumbago with sciatica, left side

== ENCOUNTER 2023-01-12 08:00 | Outpatient (RCR) | payer BC | END 2023-01-15 | LOC: PT 08:00 | PROVIDERS: ATTEND Student in an Organized Health Care Education/Training Program | DX: M51.26 Other intervertebral disc displacement, lumbar region (principal); M54.42 Lumbago with sciatica, left side ==